=== PATIENT | female | born 1940 | race Caucasian/White ===

== ENCOUNTER 2016-08-02 17:57 | Observation (INO) | payer MEDICARE, MEDICAID ==
[~2016-08-02] VITALS: Ht 157.5 cm; Wt 60.0 kg
[~2016-08-02 17:57] MED LIST: ASPI-676 PO; DILT120C45 PO; DOCU100C PO; FURO-110 PO; METF500T3 PO; OMEP20CA9 PO; SMV40T PO; VALS160T20 PO; ZOLP10TA PO
[2016-08-02 18:27] VITALS: Ht 157.5 cm; Wt 60.0 kg
[2016-08-02] MEDS ORDERED: morphine 2 MG INJ IV STA (21:38)
[2016-08-02] MEDS ORDERED: ONDANSETRON 4 MG INJ IV STA (21:38)
[2016-08-02] MEDS ORDERED: SOD CHLORIDE 0.9% 500 ML IV STA (21:38)
[2016-08-02 21:48] LABS: ADD SCAN DIFF NO
[2016-08-02 21:51] LABS: BASOPHIL # 0.1 10^3/ul (0.0-0.1); BASOPHILS % 0.7 % (0.0-2.0); EOSINOPHILS # 0.3 10^3/ul (0.0-0.5); EOSINOPHILS % 3.2 % (0.0-7.0); HEMATOCRIT 45.9 % (37.0-47.0); HEMOGLOBIN 15.1 g/dl (12.0-16.0); LYMPHOCYTES # 1.5 10^3/ul (0.8-2.9); LYMPHOCYTES % 15.6 % (15.0-51.0); MEAN CORPUSCULAR HEMOGLOBIN 30.1 pg (29.0-33.0); MEAN CORPUSCULAR HGB CONC 32.9 g/dl (32.0-37.0); MEAN CORPUSCULAR VOLUME 91.4 fl (82.0-101.0); MEAN PLATELET VOLUME 10.3 fl (7.4-10.4); MONOCYTE # 0.7 10^3/ul (0.3-0.9); MONOCYTES % 6.9 % (0.0-11.0); NEUTROPHIL # 6.9 10^3/ul (1.6-7.5); NEUTROPHILS % 73.4 % (39.0-77.0); PLATELET COUNT 292 10^3/UL (140-415); RED BLOOD COUNT 5.02 10^6/ul (4.20-5.40); RED CELL DISTRIBUTION WIDTH 14.6 % (11.5-14.5); WHITE BLOOD COUNT 9.4 10^3/ul (4.8-10.8)
[2016-08-02] MEDS ORDERED: LOSA100T7 PO (21:55)
[2016-08-02] MEDS ORDERED: HYDR12.58 PO (21:56)
[2016-08-02] MEDS ORDERED: DONE10TA7 PO (21:56)
[2016-08-02] MEDS ORDERED: GABA300C16 PO (21:57)
[2016-08-02] MEDS ORDERED: LINA145C PO (21:58)
[2016-08-02] MEDS ORDERED: TRAM-40 PO (21:58)
[2016-08-02 22:01] LABS: INR 1.05; PROTIME 13.7 Sec (12.2-14.2); PT RATIO 1.1
[2016-08-02 22:02] LABS: ALBUMIN 3.9 g/dl (3.3-4.9); CHLORIDE 94 mmol/L (97-110); PARTIAL THROMBOPLASTIN TIME 31.5 Sec (25.0-35.0); POTASSIUM 3.4 mmol/L (3.5-5.1); SODIUM 139 mmol/L (135-144)
[2016-08-02 22:04] LABS: BILIRUBIN,INDIRECT 0.2 mg/dl (0-1.1); BILIRUBIN,TOTAL 0.2 mg/dl (0.2-1.3); CREATININE 0.59 mg/dl (0.44-1.00)
[2016-08-02 22:05] LABS: ALANINE AMINOTRANSFERASE 23 IU/L (13-69); ALKALINE PHOSPHATASE 94 IU/L (42-121); ANION GAP 15 (8-16); ASPARTATE AMINO TRANSFERASE 24 IU/L (15-46); BLOOD UREA NITROGEN 9 mg/dl (7-20); CALCIUM 9.4 mg/dl (8.4-10.2); CARBON DIOXIDE 33 mmol/L (21-31); GLUCOSE 144 mg/dl (70-220); TOTAL PROTEIN 7.8 g/dl (6.1-8.1)
[2016-08-02 22:23] LABS: TROPONIN-I < 0.012 ng/ml (0.00-0.12)
--- NOTE | 2016-08-03 00:23 | RADRPT ---
PROCEDURE: CT abdomen and pelvis without contrast. CLINICAL INDICATION: Diffuse abdominal pain and vomiting TECHNIQUE: CT scan of the abdomen and pelvis without contrast was performed. Sagittal and coronal reformatted images were obtained from the axial source images. CTDI = 13.41 mGy; DLP = 697.91 mGy-c m COMPARISON: CT 03/24/2013 FINDINGS: Visualized lower thorax: Esophageal stent in the distal esophagus is noted, some gas is present wit hin the lumen. Bilateral lower lobe peribronchial thickening unable to exclude bronchitis with biba silar subsegmental atelectasis and / or scarring. The visualized heart is mildly enlarged. There i s no evidence for pleural effusion. Liver, gallbladder, pancreas and spleen: The liver is normal and size, contour and attenuation. Th ere is no evidence for a liver mass or ductal dilatation. The gallbladder is unremarkable. No comm on bile duct abnormality is demonstrated. Simple 9 mm cyst in the upper pain. Body is again noted with an additional 9 mm cyst in the pancreatic head, the pancreatic duct within limits of normal. T he spleen is normal in size. The peripherally calcified splenic artery aneurysm seen previously has not changed significantly in size estimated at 3 cm in greatest dimension (series 2 image 33) Adrenal glands and genitourinary system: Right adrenal gland nodule containing punctate foci of fat is unchanged estimated 2.5 cm (series 3 image 34) the finding most likely a myelolipoma. The left a drenal gland is unremarkable. Renal size and contour are normal bilaterally with trace right-sided hydronephrosis without calculus. The left kidney is unremarkable. The left ureter is unremarkable the right ureter is mildly dilated without calculus. No urinary bladder abnormality is demonstrated . A calcification within the atrophic uterine fundus measures approximately 1 cm and is consistent with an old leiomyoma. There is no evidence of ovarian or adnexal mass. No free fluid is seen in t he cul-de-sac. Gastrointestinal system: The stomach is normal in caliber with no abnormality of significance. The small bowel is normal in caliber with no ileus, obstruction or wall thickening. There is no evidenc e of appendicitis. The colon shows no evidence for wall thickening or acute abnormality. There is no evidence for colitis or diverticulitis. Artifact from a metallic type density in the fecal materi al of the rectum is present and of uncertain significance. There is no evidence of proctitis Peritoneum, retroperitoneum, lymph nodes and vessels: The abdominal aorta is normal in caliber. The re is mild to moderate aortic and iliac system atherosclerotic calcification. The inferior vena cav a is unremarkable. There is no evidence for adenopathy or mass. There is no ascites. No pneumoperi toneum is present. A fat containing infraumbilical ventral hernia of approximately 4 cm is unchange d. Osseous structures and musculoskeletal findings: Chronic appearing superior L4 compression deformit y is again noted with diffuse demineralization and thoracolumbar spondylosis not significantly ospina ed. Degenerative osteoarthrosis of the left greater than hip joint is again noted. Incidental bila teral calcified injection gluteal granulomata are again seen. RPTAT:HJJR IMPRESSION: 1. Mild right hydroureteronephrosis without evidence of radiopaque urinary tract calculus suggests the possibility of recent stone passage in the proper clinical setting. 2. No evidence of bowel obstruction, ileus, colitis or diverticulitis. 3. Distal esophageal stent is again noted with gas in the lumen implying stent patency. 4. Stable peripherally calcified approximately 3 cm splenic artery aneurysm. 5. 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 6. Suspected calcified uterine leiomyoma again noted. 7. Linear metallic type density in the rectum possibly a previous ingested foreign body and of doub tful clinical significance. 8. Stable fat-containing infraumbilical hernia. 9. Again noted is a chronic superior L4 osteoporotic compression deformity. Physician Lenora Date Time Electronically viewed and signed by Physician Lenora on 08/03/2016 00:22 JR/
[2016-08-03 02:08] LABS: ADD UMIC NO; URINE BILIRUBIN (Dip) NEGATIVE (NEGATIVE); URINE BLOOD (Dip) NEGATIVE (NEGATIVE); URINE COLOR LT. YELLOW (YELLOW); URINE GLUCOSE (Dip) NEGATIVE (NEGATIVE); URINE KETONES (Dip) NEGATIVE (NEGATIVE); URINE LEUKOCYTE ESTERASE (Dip) NEGATIVE (NEGATIVE); URINE NITRITE (Dip) NEGATIVE (NEGATIVE); URINE TOTAL PROTEIN (Dip) NEGATIVE (NEGATIVE); URINE UROBILINOGEN (Dip) 0.2 E.U./dL (0.1-1.0)
[2016-08-03] MEDS ORDERED: MECLIZINE 12.5 MG TAB PO ONE (04:00)
[2016-08-03] MEDS ORDERED: ONDANSETRON 4 MG INJ IV STA (04:53)
[2016-08-03] MEDS ORDERED: METOCLOPRAMIDE 10 MG INJ IV ONE (05:00)
[2016-08-03] MEDS ORDERED: LABETALOL HCL 20MG INJ IV ONE (05:00)
--- NOTE | 2016-08-03 05:56 | RADRPT ---
PROCEDURE: CT Brain without. CLINICAL INDICATION: Vertigo TECHNIQUE: A CT of the brain was performed utilizing axial sections from the skull base through th e vertex without contrast. The scan was reviewed in soft tissue brain and high frequency resolution bone algorithm windows. Images were reviewed on a high-resolution PACS workstation. The exam CTDI = 38.54 mGy, and the DLP = 713.51 mGy-cm. COMPARISON: Head CT dated 03/24/2013 FINDINGS: There is mild prominence of the lateral ventricles and cerebral sulci, consistent with diffuse cereb ral atrophy. There is no intracranial hemorrhage, midline shift, or mass effect. No abnormal extra- axial fluid collections are identified. There is hypoattenuation of the periventricular white matte r. The graff-white differentiation is well preserved. The basal cisterns are patent. The posterior fossa is unremarkable. Vascular calcifications are noted within the intracranial portions of the ve rtebral and internal carotid arteries. The visualized portions of the orbits are unremarkable. The paranasal sinuses and mastoid air cells are clear. No calvarial fracture or abnormality are identified. The soft tissues are unremarkable . IMPRESSION: 1. No acute intracranial abnormality. No significant interval change. 2. Age related senescent changes with mild diffuse cerebral atrophy. 3. Extensive patchy periventricular hypoattenuation, nonspecific finding, most commonly associated with microvascular ischemic changes. 4. Arterial atherosclerosis. RPTAT: HH .Kathe Nunes MD, Date Time Electronically viewed and signed by .Kathe Nunes MD, on 08/03/2016 05:56 .G/
[2016-08-03] MEDS ORDERED: ONDANSETRON 4 MG INJ IV ONE (06:05)
[2016-08-03] MEDS ORDERED: ONDANSETRON 4 MG INJ IV PRN ×2 (06:30→08:00)
[2016-08-03] MEDS ORDERED: ACETAMINOPHEN 325 MG TAB PO PRN ×2 (06:30→08:00)
--- NOTE | 2016-08-03 06:31 | ERD ---
ER Documentation Chief Complaint Date/Time DATE: 08/03/16 TIME: 06:24 Chief Complaint diffuse abd pain x 2 days w/ vomiting HPI 76-year-old female presents with diffuse crampy abdominal pain, dizziness described as the room spinning, multiple episodes of vomiting with persistent nausea after 3 days. He has also had generalized weakness. She denies any fevers or chills. Denies any chest pain. Does not have a headache. All denies any neuro deficits. ROS All systems reviewed and are negative except as per history of present illness. Medications Home Meds Reported Medications Linaclotide (LINZESS) 145 Mcg Capsule, 145 MCG PO DAILY, #30 CAP 08/02/16 Tramadol Hcl* (Ultram*) 50 Mg Tablet, 50 MG PO TID Y for PAIN, TAB 08/02/16 Gabapentin* (Gabapentin*) 300 Mg Capsule, 300 MG PO DAILY, #30 CAP 08/02/16 Donepezil* (Donepezil*) 10 Mg Tablet, 10 MG PO DAILY, #30 TAB 08/02/16 Hydrochlorothiazide* (Hydrochlorothiazide*) 12.5 Mg Tablet, 12.5 MG PO DAILY, # 30 TAB 08/02/16 Losartan Potassium* (Losartan Potassium*) 100 Mg Tablet, 100 MG PO DAILY, TAB 08/02/16 Metformin* (Glucophage* XR) 500 Mg Tab.sr.24h, 500 MG PO DAILY 08/02/12 Simvastatin (Simvastatin) 40 Mg Tablet, 40 MG PO HS 08/02/12 Omeprazole* (Prilosec*) 20 Mg Capsule.dr, 20 MG PO DAILY 08/02/12 Diltiazem Hcl (Diltiazem Er) 120 Mg Capsule.cr, 120 MG PO DAILY 08/02/12 Discontinued Reported Medications Zolpidem Tartrate* (Ambien*) 10 Mg Tablet, 10 MG PO DAILY 08/02/12 Docusate Sodium (Doc-Q-Lace) 100 Mg Capsule, 100 MG PO TID 08/02/12 Furosemide* (Lasix*) 20 Mg Tablet, 20 MG PO DAILY 08/02/12 Aspirin (Linda Child) 81 Mg Chew, 81 MG PO DAILY 08/02/12 Valsartan* (Diovan*) 160 Mg Tablet, 160 MG PO BID 08/02/12 Allergies Allergies: Coded Allergies: No Known Allergy (Verified , 08/02/16) PMhx/Soc History of Surgery: Yes (RIGHT MASTECTOMY) Anesthesia Reaction: No Hx Neurological Disorder: No Hx Respiratory Disorders: Yes (ASTHMA, BRONCHITIS, PNA) Hx Cardiac Disorders: Yes (HTN) Hx Psychiatric Problems: No Hx Miscellaneous Medical Probl: Yes (DM, cholesterol) Hx Alcohol Use: No Hx Substance Use: No Hx Tobacco Use: No Smoking Status: Never smoker Physical Exam Vitals Vital Signs Date Time Temp Pulse Resp B/P Pulse Ox O2 Delivery O2 Flow Rate FiO2 08/03/16 05:39 98.0 58 20 174/98 96 Nasal Cannula 2.0 08/03/16 03:00 98.2 54 20 158/94 96 Nasal Cannula 2.0 08/03/16 01:00 98.2 58 16 165/97 97 Nasal Cannula 2.0 08/02/16 22:45 74 16 155/102 97 Nasal Cannula 2.0 08/02/16 18:27 98.2 96 20 169/119 97 Physical Exam Const: [] No distress, patient appears uncomfortable, holding emesis basin, vomited on exam Head: Atraumatic Eyes: Normal Conjunctiva, EOMI, PERRLA ENT: Normal External Ears, Nose and Mouth. Neck: Full range of motion..~ No meningismus. Resp: Clear to auscultation bilaterally Cardio: Regular rate and rhythm, no murmurs Abd: Soft, mild diffuse tenderness without guarding or rebound, non distended. Normal bowel sounds Skin: No petechiae or rashes Back: No midline or flank tenderness Ext: No cyanosis, or edema Neur: Awake and alert and oriented 3, cranial nerves II through XII intact, no cerebellar deficits, gait not tested, vertigo made worse with positional changes Psych: Normal Mood and Affect Result Diagram: 08/02/16213208/02/162132 Results 24 hrs Laboratory Tests Test 08/02/16 21:33 08/02/16 21:45 08/03/16 01:30 Activated Partial Thromboplast Time 31.5Sec Alanine Aminotransferase (ALT/SGPT) 23IU/L Albumin 3.9g/dl Albumin/Globulin Ratio 1.00 Alkaline Phosphatase 94IU/L Anion Gap 15 Aspartate Amino Transf (AST/SGOT) 24IU/L Basophils # 0.110^3/ul Basophils % 0.7% Blood Urea Nitrogen 9mg/dl Calcium Level 9.4mg/dl Carbon Dioxide Level 33mmol/L Chloride Level 94mmol/L Creatinine 0.59mg/dl Direct Bilirubin 0.00mg/dl Eosinophils # 0.310^3/ul Eosinophils % 3.2% Globulin 3.90g/dl Glucose Level 144mg/dl Hematocrit 45.9% Hemoglobin 15.1g/dl INR International Normalized Ratio 1.05 Indirect Bilirubin 0.2mg/dl Lipase 42U/L Lymphocytes # 1.510^3/ul Lymphocytes % 15.6% Mean Corpuscular Hemoglobin 30.1pg Mean Corpuscular Hemoglobin Concent 32.9g/dl Mean Corpuscular Volume 91.4fl Mean Platelet Volume 10.3fl Monocytes # 0.710^3/ul Monocytes % 6.9% Neutrophils # 6.910^3/ul Neutrophils % 73.4% Nucleated Red Blood Cells # 0.010^3/ul Nucleated Red Blood Cells % 0.0/100WBC Platelet Count 90715^3/UL Potassium Level 3.4mmol/L Prothrombin Time 13.7Sec Prothrombin Time Ratio 1.1 Red Blood Count 5.0210^6/ul Red Cell Distribution Width 14.6% Sodium Level 139mmol/L Total Bilirubin 0.2mg/dl Total Protein 7.8g/dl Troponin I < 0.012ng/ml White Blood Count 9.410^3/ul Lactic Acid Level 2.0mmol/L Urine Bilirubin NEGATIVE Urine Clarity CLEAR Urine Color LT. YELLOW Urine Glucose NEGATIVE% Urine Hemoglobin NEGATIVE Urine Ketones NEGATIVE Urine Leukocyte Esterase NEGATIVE Urine Nitrite NEGATIVE Urine Specific [place] 1.010 Urine Total Protein NEGATIVE Urine Urobilinogen 0.2 E.U./dL Urine pH 8.0 Current Medications Medications (Trade) Dose Ordered Sig/Rachel Route PRN Reason Start Time Stop Time Status Last Admin Dose Admin Sodium Chloride (NS) 500 ml @ 500 mls/hr Q1H STAT IV 08/02/16 21:38 08/02/16 22:37 DC 08/02/16 21:56 Morphine Sulfate (morphine) 2 mg ONCE STAT IV 08/02/16 21:38 08/02/16 21:40 DC 08/02/16 21:56 Ondansetron HCl (Zofran Inj) 4 mg ONCE STAT IV 08/02/16 21:38 08/02/16 21:40 DC 08/02/16 21:56 Meclizine HCl (Antivert) 25 mg ONCE ONCE PO 08/03/16 04:00 08/03/16 04:01 DC 08/03/16 03:48 Labetalol HCl (Labetalol) 10 mg ONCE ONCE IV 08/03/16 05:00 08/03/16 05:01 DC 08/03/16 05:10 Metoclopramide HCl (Reglan) 10 mg ONCE ONCE IV 08/03/16 05:00 08/03/16 05:01 DC 08/03/16 05:10 Ondansetron HCl (Zofran Inj) 4 mg ONCE STAT IV 08/03/16 04:53 08/03/16 04:55 DC 08/03/16 05:10 Ondansetron HCl (Zofran Inj) 4 mg ONCE ONCE IV 08/03/16 06:05 08/03/16 06:06 DC Ondansetron HCl (Zofran Inj) 4 mg BRIDGE ORDER PRN IV NAUSEA AND/OR VOMITING 08/03/16 06:30 08/04/16 06:29 Acetaminophen (Tylenol Tab) 650 mg ER BRIDGE PRN PO MILD PAIN/FEVER 08/03/16 06:30 08/04/16 06:29 Procedures/MDM Elderly female with intractable nausea and vertigo. Given multiple doses of nausea medication in the ER. No relief from vertigo with Antivert. She stated that she actually felt worse after the Antivert. Benign abdominal exam and CAT scan showing no acute abnormalities it would explain any of her symptoms. Patient also states that she is constipated although CT does not show evidence of any severe constipation. No signs of sepsis or any overwhelming infection with normal white count, patient does have contraction alkalosis suggestive of dehydration which is consistent with her nausea and vomiting for 2 days. Lactic acid of 2. Patient was hydrated with normal saline. She also had no signs of cardiac abnormalities. Patient did have inverted T waves on EKG with a negative troponin and no chest pain or. Head CT did not show any signs of any stroke or brain hemorrhage. No trauma was reported. Patient is going to be admitted for further evaluation and monitoring, and IV hydration. Dr. toney is admitting the patient. EKG interpretation: Normal sinus rhythm, left axis deviation, right bundle branch block, ST inversions in all precordial leads, suspicious for some ischemia. A monitor interpretation: Normal sinus rhythm without arrhythmia Chest x-ray interpretation: No acute process, no witnessed him, no infiltrates, no pneumothorax, no fractures CT head interpretation: I see no acute process, no hemorrhage no mass effect no midline shift, no skull fractures Departure Diagnosis: Primary Impression: Dehydration Additional Impressions: Intractable vomiting Vertigo Abdominal pain Condition: Stable DENZEL JENKINS DO Aug 03, 2016 06:31
[2016-08-03 07:20] VITALS: TEMP 98
[2016-08-03] MEDS ORDERED: NACL 0.9% 3 ML SYG IV SCH (08:00)
[2016-08-03] MEDS ORDERED: traMADol 50 MG TAB PO PRN (08:00)
[2016-08-03] MEDS ORDERED: NON-FORMULARY/PATIENT OWN MED (Linaclotide (Linzess) 145 MCG) PO SCH (09:00)
[2016-08-03] MEDS ORDERED: GABAPENTIN 300 MG CAP PO SCH (09:00)
[2016-08-03] MEDS ORDERED: LOSARTAN 50 MG TAB PO SCH (09:00)
[2016-08-03] MEDS ORDERED: DILTIAZEM (CD) 120 MG CAP PO SCH (09:00)
[2016-08-03] MEDS ORDERED: DONEPEZIL 10 MG TAB PO SCH (09:00)
[2016-08-03] MEDS ORDERED: HYDROCHLOROTHIAZIDE 12.5 MG CAP PO SCH (09:00)
[2016-08-03] MEDS ORDERED: metFORMIN (XR) 500 MG TAB PO SCH (09:00)
[2016-08-03] MEDS ORDERED: PANTOPRAZOLE (EC) 40 MG TAB PO SCH (09:00)
[2016-08-03 10:00] VITALS: BP 175/95; PULSE 59; RESP 16
[2016-08-03] MEDS ORDERED: hydrALAzine 20 MG INJ IV PRN (12:30)
[2016-08-03 12:58] VITALS: BP 180/85; PULSE 58
[2016-08-03 13:37] VITALS: BP 125/70; PULSE 80
--- NOTE | 2016-08-03 16:29 | PDOCDIS ---
Discharge Instructions CONDITION Patient Condition: Good HOME CARE INSTRUCTIONS: Special Diet: Diabetic ACTIVITY: Activity Restrictions: No Restrictions FOLLOW UP/APPOINTMENTS Appointments F/U WITH YOUR PCP IN 1-2 WEEKS BHARATI SNOW Aug 03, 2016 16:29
[2016-08-03] MEDS ORDERED: ONDA-43 PO (16:30)
[2016-08-03] MEDS ORDERED: POTASSIUM CHLORIDE (SR) 20 MEQ TAB PO STA (16:33)
--- NOTE | 2016-08-03 17:04 | DS ---
DATE OF ADMISSION: 08/03/2016 DATE OF DISCHARGE: 08/03/2016 DISCHARGE DIAGNOSES: 1. Gastroenteritis, likely viral, resolved, discharge with Zofran. 2. History of diabetes. Continue home medications. 3. Hypertension, elevated during this hospitalization secondary to abdominal discomfort, but now st able. 4. Gastroesophageal reflux disease. Continue home medications. 5. Mild dementia. Continue Aricept. HOSPITAL COURSE: The patient is a 76-year-old female with a history of elc-pwxcwjy-[id number] diabet es, hypertension, dementia. The patient presents with abdominal pain with nausea, vomiting for the past 2 days. During that time, BP was also elevated. She had a CT abdomen that showed no acute fin dings. There were some chronic findings, but nothing of acute significance. The patient received a brain CT that showed no acute findings as well ____ age-related changes. The patient's labs were w ithin normal limits except for potassium that was slightly low and that was replaced. Patient's lip ase was within normal limits. The patient's UA was normal. Coagulation was normal. On day of disc harge, the patient's vitals, labs, and physical exam were stable. She had no acute complaints and q uestions were answered. Her nausea, vomiting, and abdominal pain has been resolved. CONDITION ON DISCHARGE: Stable. DISPOSITION: To home. MEDICATIONS: She should continue her usual home medications. The patient was given a new prescript ion for Zofran 4 mg p.o. q.6h. p.r.n. for nausea, vomiting. FOLLOWUP: The patient is to follow up with PCP in 1 to 2 weeks. Greater than 30 minutes was spent coordinating discharge of patient. Dictated By: BHARATI SNOW MD BS/NTS Conf#: [id number] DID#: [id number]
[2016-08-03] MEDS ORDERED: ATORVASTATIN 20 MG TAB PO SCH (21:00)
--- NOTE | 2016-08-04 07:45 | HP ---
DATE OF ADMISSION: 08/03/2016 TIME SEEN: 6:30 AM CHIEF COMPLAINT: Abdominal pain and vomiting and right ____. HISTORY OF PRESENT ILLNESS: The patient is a 76-year-old female with a history of breast cancer, hy pertension, dyslipidemia, ____pneumonia and diabetes, who presented to the emergency department with the above stated chief complaint. Abdominal pains are mostly diffuse, but more pronounced in the e pigastric and right side of her abdomen. She has also been having multiple episodes of nonbloody, n onbilious vomiting. Also, she reported vertigo-like symptoms usually associated with vomiting. She denied any chest pain, shortness of breath, fever or chills. When the patient presented to the ER, CT of the head was done and it showed volume loss as well as e xtensive patchy periventricular hypoattenuation, likely a result of microangiopathic ischemic change . Otherwise, there were no acute findings. CT of abdomen and pelvis was done which showed no acute findings, including no bowel obstruction. The patient has a distal esophageal stent which was note d on the CAT scan. The patient was given meclizine in the ER, along with anti-emetics ____. REVIEW OF SYSTEMS: ____ ____ PHYSICAL EXAMINATION: GENERAL: The patient lying in bed. She was sleepy, but arousable. She ____ appears weak. HEENT: No obvious head deformity. Anicteric sclerae. Extraocular muscles intact. CARDIOVASCULAR: Regular rate and rhythm. No extra sounds. LUNGS: Clear. ABDOMEN: Soft, tenderness diffusely with no guarding. No rigidity. There are positive bowel sound s. EXTREMITIES: ____ LABORATORIES: Potassium 3.4. ____ IMAGING: CT of the head and CT abdomen and pelvis with results mentioned in the HPI. IMPRESSION: 1. Abdominal pain with nausea and vomiting. 2. History of hypertension. 3. Vertigo-like symptoms. 4. History of dyslipidemia. 5. History of diabetes. 6. History of asthma. 7. History of breast cancer. PLAN: The patient with symptoms of abdominal pain and nausea and vomiting could be a result of some type of food poisoning. CT of the head did not show any bowel obstruction and her distal esophage al stent was noted to be in the right place ____. We will provide pain medication and antiemetics a s needed. Her vertigo-like symptom is most likely the result of her intractable vomiting. ____IV fluids. We will monitor her kidney function. We will replace electrolytes as needed. Will continue her home medications with adjustment as needed. If her vertigo-like symptoms do not improve after hydration and controlling her clonidine, then mecl izine will be ____her, but it seems like it is premature to treat her with meclizine at this point. Further workup and management per clinical course. Dictated By: LISA ZUNIGA/JULIO CÉSAR Conf#: [id number] DID#: [id number]
== END 2016-08-03 18:30 | disposition home or self-care (01) ==
LOC: E/R 17:57 → MS1 08-03 06:13
PROVIDERS: ADMIT Internal Medicine; ATTEND Internal Medicine
DX: A08.4 Viral intestinal infection, unspecified (principal); E11.9 Type 2 diabetes mellitus without complications; I10 Essential (primary) hypertension; K21.9 Gastro-esophageal reflux disease without esophagitis; F03.90 Unspecified dementia, unspecified severity, without behavioral disturbance, psychotic disturbance, mood disturbance, and anxiety; E78.5 Hyperlipidemia, unspecified; J45.909 Unspecified asthma, uncomplicated; Z85.3 Personal history of malignant neoplasm of breast
CPT/HCPCS: 36415; 70450; 74176; 80053; 81003; 83605; 83690; 84484; 85025; 85610; 85730; 93005; 96374; 96375; 96376; 99285; G0378; J0360; J2270; J2405; J2765; J7040

== ENCOUNTER 2016-08-25 09:14 | Emergency (ER) | payer MEDICARE, MEDICAID ==
[~2016-08-25] VITALS: Ht 154.9 cm; Wt 55.0 kg
[~2016-08-25 09:14] MED LIST changes: -ASPI-676 PO; -DOCU100C PO; +DONE10TA7 PO; -FURO-110 PO; +GABA300C16 PO; +HYDR12.58 PO; +LINA145C PO; +LOSA100T7 PO; +MIDAZOLAM 1 MG/ML 2 ML INJ ONE; +ONDA-43 PO; +TRAM-40 PO; -VALS160T20 PO; -ZOLP10TA PO
[2016-08-25 09:15] VITALS: Ht 154.9 cm; Wt 55.0 kg
[2016-08-25] MEDS ORDERED: FENTAnyl 50 MCG/ML VIAL IV ONE (09:30)
[2016-08-25] MEDS ORDERED: NORepinephrine 8MG/250 ML (PMX 250 ML ONE (09:34)
[2016-08-25] MEDS ORDERED: SODIUM CHLORIDE 0.9% 1L BAG IV* STA (09:40)
[2016-08-25] MEDS ORDERED: CEFEPIME 2GM/50 ML (PMX) 50 ML IVPB STA (09:40)
[2016-08-25] MEDS ORDERED: SOD CHLORIDE 0.9% 1,000 ML IV STA (09:40)
[2016-08-25] MEDS ORDERED: NORepinephrine 8MG/250 ML (PMX 250 ML IV STA (09:40)
[2016-08-25] MEDS ORDERED: MIDAZOLAM (DRIP) 50 mg/50 mL 50 ML IV STA (09:42)
[2016-08-25] MEDS ORDERED: FENTAnyl (DRIP) 1000 mcg/100mL 100 ML IV SCH (10:00)
[2016-08-25] MEDS ORDERED: VANCOMYCIN 1 GM (PMX) 250 ML IVPB ONE (10:00)
[2016-08-25] MEDS ORDERED: VASOPRESSIN 60 UNIT in SOD CHLORIDE 0.9% 57 ML IV STA (10:16)
[2016-08-25] MEDS ORDERED: DOPamine-D5W 1.6 MG/ML 250 ML ONE (10:19)
[2016-08-25] MEDS ORDERED: DOPamine-D5W 1.6 MG/ML 250 ML IV SCH (10:30)
[2016-08-25] MEDS ORDERED: IODIXANOL LOCM 100 ML BTL ONE (10:34)
[2016-08-25] MEDS ORDERED: IODIXANOL LOCM 50 ML BTL ONE (10:34)
[2016-08-25] MEDS ORDERED: SOD CHLORIDE 0.9% 100 ML ONE (10:34)
[2016-08-25 10:36] LABS: AADO2 Arterial 172.4 mmHg (7.0-24.0); Arterial Base Excess -15.3 mmol/L (-3.0-3); Arterial COHb 0.3 % (0.0-3.0); Arterial Fraction of Oxyhgb 97.9 % (93.0-99.0); Arterial HCO3 11.3 mmol/L (22.0-26.0); Arterial Total Hemglobin 5.4 g/dl (12.0-18.0); Blood Gas Low PEEP Setting 0 cmH2O; MODE VENT - AC
--- NOTE | 2016-08-25 10:37 | ERA ---
ER Documentation Chief Complaint Date/Time DATE: 08/25/16 TIME: 10:29 Chief Complaint ALOC brought by EMS HPI 76-year-old female who presents via EMS intubated. History is somewhat limited. An ingredient specialist was used with the patient's daughter. It appears the patient did not feel well yesterday evening. Today the patient was describing shortness of breath and lung collapse. Upon EMS arrival the patient had agonal respirations and hypotension. The patient was intubated in the field. Upon arrival the patient was intubated, hypotensive and further aggressive resuscitation efforts were provided as documented below. Remainder of HPI is limited given critical nature. The patient's daughter does not describe any recent fever, chest pain, pleuritic pain, travel, no history of DVT. ROS All systems reviewed and are negative except as per history of present illness. Medications Home Meds Reported Medications Linaclotide (LINZESS) 145 Mcg Capsule, 145 MCG PO DAILY, #30 CAP 08/02/16 Tramadol Hcl* (Ultram*) 50 Mg Tablet, 50 MG PO TID Y for PAIN, TAB 08/02/16 Gabapentin* (Gabapentin*) 300 Mg Capsule, 300 MG PO DAILY, #30 CAP 08/02/16 Donepezil* (Donepezil*) 10 Mg Tablet, 10 MG PO DAILY, #30 TAB 08/02/16 Hydrochlorothiazide* (Hydrochlorothiazide*) 12.5 Mg Tablet, 12.5 MG PO DAILY, # 30 TAB 08/02/16 Losartan Potassium* (Losartan Potassium*) 100 Mg Tablet, 100 MG PO DAILY, TAB 08/02/16 Metformin* (Glucophage* XR) 500 Mg Tab.sr.24h, 500 MG PO DAILY 08/02/12 Simvastatin (Simvastatin) 40 Mg Tablet, 40 MG PO HS 08/02/12 Omeprazole* (Prilosec*) 20 Mg Capsule.dr, 20 MG PO DAILY 08/02/12 Diltiazem Hcl (Diltiazem Er) 120 Mg Capsule.cr, 120 MG PO DAILY 08/02/12 Discontinued Scripts Ondansetron Hcl* (Zofran*) 4 Mg Tab, 4 MG PO Q6H Y for NAUSEA AND OR VOMITING, # 20 TAB 1 Refill Prov:BHARATI SNOW 08/03/16 Allergies Allergies: Coded Allergies: No Known Allergy (Verified , 08/25/16) PMhx/Soc History of Surgery: Yes (right mastectomy) Anesthesia Reaction: No Hx Neurological Disorder: No Hx Respiratory Disorders: Yes (asthma ) Hx Cardiac Disorders: Yes (HTN) Hx Psychiatric Problems: Yes (anxiety) Hx Miscellaneous Medical Probl: No Hx Alcohol Use: No Hx Substance Use: No Hx Tobacco Use: Yes Smoking Status: Unknown if ever smoked FmHx Unknown Physical Exam Vitals Vital Signs Date Time Temp Pulse Resp B/P Pulse Ox O2 Delivery O2 Flow Rate FiO2 08/25/16 11:26 104 26 100 100 08/25/16 09:26 99 20 100 100 08/25/16 09:15 98.4 108 16 77/45 100 Physical Exam General: The patient is intubated. Slight movement of all extremities Head: Normocephalic, atraumatic. Eyes: Pupils equally reactive, EOM intact ENT: Moist mucous membranes, endotracheal tube appears to be in good position Neck: Supple, no lymphadenopathy Respiratory: Breath sounds bilaterally with bagging Cardiovascular: RRR, no murmurs, rubs, or gallops, thready pulses distally Abdominal: Soft, non-tender, non-distended, no peritoneal signs, no pulsatile mass : Deferred MSK: No edema, no unilateral swelling, limited movement of all extremities Neurologic: Appears to open eyes spontaneously but no movement following commands Skin: No rash, no evidence of trauma Psych: Normal mood Result Diagram: 08/25/16 0930 Results 24 hrs Laboratory Tests Test 08/25/16 09:30 08/25/16 09:36 08/25/16 11:25 Sodium Level 147mmol/L Potassium Level 4.2mmol/L Chloride Level 120mmol/L Carbon Dioxide Level 14mmol/L Anion Gap 17 Blood Urea Nitrogen 9mg/dl Creatinine 0.67mg/dl Glucose Level 280mg/dl Lactic Acid Level 7.7mmol/L Calcium Level 6.7mg/dl Total Bilirubin 0.0mg/dl Direct Bilirubin 0.00mg/dl Indirect Bilirubin 0.0mg/dl Aspartate Amino Transf (AST/SGOT) 11IU/L Alanine Aminotransferase (ALT/SGPT) 19IU/L Alkaline Phosphatase 27IU/L Troponin I 0.014ng/ml Total Protein 3.1g/dl Albumin 1.4g/dl Globulin 1.70g/dl Albumin/Globulin Ratio 0.82 Lipase 87U/L Blood Gas Specimen Source Blood arterial Arterial Blood Date Drawn 08/25/2016 10:24:54 AM Arterial Blood pH (Temp corrected) 7.204 Arterial Blood pCO2 (Temp correct) 29.3mmhg Arterial Blood pO2 (Temp corrected) 511.3mmHG Arterial Blood HCO3 11.3mmol/L Arterial Blood Base Excess -15.3mmol/L Arterial Blood Oxygen Saturation 99.2mmHG Robert Test N/A Arterial Blood Gas Puncture Site Right Brachial Arterial Blood Carboxyhemoglobin 0.3% Arterial Blood Methemoglobin 1.0% Blood Gas A-a O2 Differential 172.4mmHg Oxyhemoglobin Percent 97.9% Total Hemoglobin 5.4g/dl Blood Gas Temperature 37.0C Blood Gas Respiration Rate 16.0 Blood Gas Actual Respiration Rate 21 Blood Gas Modality VENT - AC FiO2 100.0% Blood Gas Tidal Volume 500.0mL Blood Gas Low PEEP Setting 0cmH2O Blood Gas Critical Value Read Back DR. DOSS Blood Gas Notified Whom M.William. Blood Gas Notified Time 08/25/2016 10:35:43 AM Prothrombin Time Pending Prothrombin Time Ratio 2.9 INR International Normalized Ratio 3.63 Activated Partial Thromboplast Time 53.6Sec Current Medications Medications (Trade) Dose Ordered Sig/Rachel Route PRN Reason Start Time Stop Time Status Last Admin Dose Admin Fentanyl 100 mcg 100 mcg ONCE ONCE IV 08/25/16 09:30 08/25/16 09:31 DC 08/25/16 09:59 Norepinephrine (Levophed) 250 ml @ ud STK-MED ONCE .ROUTE 08/25/16 09:34 08/25/16 09:35 DC Sodium Chloride 1710 ml 1,710 ml BOLUS OVER 2 HOURS STAT IV* 08/25/16 09:40 08/25/16 09:43 DC 08/25/16 10:35 Norepinephrine 250 ml @ 7.5 mls/hr ONCE STAT IV 08/25/16 09:40 08/26/16 18:59 08/25/16 10:02 Cefepime HCl 50 ml @ 100 mls/hr ONCE STAT IVPB 08/25/16 09:40 08/25/16 10:09 DC Vancomycin HCl 250 ml @ 125 mls/hr ONCE ONCE IVPB 08/25/16 10:00 08/25/16 11:59 Sodium Chloride 1,000 ml @ 1,000 mls/hr Q1H STAT IV 08/25/16 09:40 08/25/16 10:39 DC 08/25/16 10:34 Fentanyl 100 ml @ 2.5 mls/hr TITRATE IV 08/25/16 10:00 Midazolam HCl 50 ml @ 3 mls/hr ONCE STAT IV 08/25/16 09:42 08/26/16 02:21 08/25/16 10:31 Vasopressin 60 unit/Sodium Chloride 60 ml @ 2.4 mls/hr ONCE STAT IV 08/25/16 10:16 08/26/16 11:15 Dopamine HCl/ Dextrose 250 ml @ 4.125 mls/ hr TITRATE IV 08/25/16 10:30 08/25/16 10:30 Dopamine HCl/ Dextrose 250 ml @ ud STK-MED ONCE .ROUTE 08/25/16 10:19 08/25/16 10:20 DC IV Flush 10 ml 10 ml STK-MED ONCE .ROUTE 08/25/16 10:34 08/25/16 10:35 DC Sodium Chloride (NS) 100 ml @ ud STK-MED ONCE .ROUTE 08/25/16 10:34 08/25/16 10:35 DC Iodixanol (Visipaque Locm) 100 ml STK-MED ONCE .ROUTE 08/25/16 10:34 08/25/16 10:35 DC Iodixanol 50 ml 50 ml STK-MED ONCE .ROUTE 08/25/16 10:34 08/25/16 10:35 DC Sodium Chloride (NS) 250 ml @ 0 mls/hr Q0M ONCE IV 08/25/16 10:41 08/25/16 10:43 DC Morphine Sulfate (morphine) 2 mg ONCE ONCE IV 08/25/16 12:00 08/25/16 12:01 UNV Procedures/MDM EKG, MONITORS, & DIAGNOSTIC IMAGING: EKG: I reviewed and interpreted a 12-lead EKG. Rhythm: Sinus tachycardia Ectopy: None Intervals: No abnormalities ST segments: No elevations or depressions T waves: No contiguous inversions possible S1 Q3 T3 strain pattern CT brain: No acute intracranial process CT chest abdomen pelvis IMPRESSION: 1. No pulmonary embolism. Mild bronchial wall thickening may be sequela of bronchitis, asthma, or other nonspecific airway inflammation. 2. The endotracheal tube is seen in the right mainstem bronchus. These findings were discussed with Roosevelt Doss at 08/25/2016 11:41:40 AM. 3. Interval increase in soft tissue thickening around the distal esophagus suggestive of progressive esophageal tumor. In addition, there is large amount of acute blood seen within the stomach. 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 These findings were discussed with Roosevelt Doss at 08/25/2016 11:42:25 AM. Please see report of CT angiogram abdomen and pelvis for further details. 4. Stable right adrenal nodule. 5. Splenic artery aneurysm. RPTAT:PP PROCEDURES: Central Line Note: Consent: I had a discussion with the patient and family regarding the procedure and discussed risks, benefits, alternatives. Critical nature, consent unable to be signed Indication: Critically ill patient requiring specialized vascular access for fluid or pressor management Location: Right IJ Procedure: Sterile procedure was observed throughout insertion of the central line. The insertion site was prepped with sterile solution. Ultrasound-guided identification of the vein was performed. Insertion of a needle into the vein was obtained with return of dark, nonpulsatile blood. The wire was then threaded through the needle without complication. The wire was then identified within the vein using ultrasound. A small skin incision was made, the needle was removed intact, dilation of the vein was performed and insertion of a triple lumen catheter was completed. The catheter was then sutured to the skin. All 3 ports rola back and flushed without difficulty. A sterile dressing was applied. The patient tolerated the procedure well there were no complications. Emergency Bedside Ultrasound: The patient was verbally consented prior to procedure and understands the risks , benefits, and alternatives. The patient is agreeable to procedure and has given verbal consent. Indication: Central line Probe Type: Linear Findings: Dynamic ultrasound utilizing compressive technique with both linear and horizontal views, additional images showing wire within the venous system were obtained. The images were saved along with patient information on a paper chart to be scanned into EMR. The patient tolerated the procedure well and there were no complications. LAB INTERPRETATION: Metabolic acidosis with a hemoglobin of 5 on arterial blood gas MEDICAL DECISION MAKING: The patient presents with altered mental status, prodrome of shortness of breath , hypotension. The patient is afebrile. Unclear etiology. Consider possible infectious, ischemic, pulmonary embolism process. Also consider possible hemorrhage but no evidence of melena on exam. Lower clinical concern for retroperitoneal hemorrhage. The patient is critically ill upon arrival. The patient is intubated. She has bilateral breath sounds. The patient requires aggressive resuscitation. ER COURSE: Multiple large-bore peripheral IVs were inserted. A central line was inserted. The patient was started on 2 L saline bolus. Broad-spectrum antibiotics provided including vancomycin and cefepime. These are empiric antibiotics started after blood cultures. The patient will benefit from CT imaging of the brain, CTA of the chest abdomen and pelvis. The patient remains hypotensive on levo. Initiation of dopamine and vasopressin was started. The patient's arterial blood gas shows evidence of low hemoglobin. Unclear etiology at this time however given the patient's unstable nature uncrossed matched packed red blood cells have been ordered. A total of 4 units have been crossmatch. The patient will be given 2 units of uncrossed match blood while waiting for crossmatch. The patient has significant lactic acidosis. She has a low hemoglobin and evidence of coagulopathy. CT imaging is concerning for esophageal cancer with erosion of the aorta and hemorrhage into the GI tract including esophagus and stomach. An emergent phone call was placed to vascular surgery, Dr. Anderson. I discussed the case. He states that the patient's likelihood of survival of surgery is minimal. He feels that given the evidence of esophageal cancer that is likely advanced with erosion into the aorta the patient's prognosis and life expectancy is on the order of 1-2 months. I informed the family members using an ingredient specialist regarding this. We discussed the risks, benefits and alternatives. We discussed her goals of care. At this point the family would like to make the patient comfort measures only. They understand the severity of this disease process and the likelihood of the patient passing within the next several hours. Given their decision I do not feel that further resuscitation efforts are necessary. We will discontinue pressors, blood transfusion and make the patient comfortable as possible. The patient is receiving sedation including fentanyl and Versed. A small dose of morphine provided. The patient is made DNR, a social services coordinator has been called to facilitate the family with [facility] DISPOSITION PLAN: Pending Medr bed CONSULTATION: Accepting care team and consultations: I discussed the current laboratory data, diagnostic imaging and emergency care provided. Admitting team: [xoxoxo] Admitting team indication: Insurance directed Consulting services: [xoxoxo] Critical Care Note: Total time: 65 minutes Indication/Organ System Threat: Shock, hemorrhagic I spent the above amount of critical care time with the patient, not including billable procedures. This included chart review, consultations, repeat bedside evaluations, and titration of appropriate medications to prevent cardiopulmonary or respiratory collapse. Departure Diagnosis: Primary Impression: Hemorrhagic shock Additional Impressions: Esophageal cancer Qualified Code: C15.9 - Malignant neoplasm of esophagus, unspecified location Aorto-esophageal fistula Acute respiratory failure Qualified Code: J96.00 - Acute respiratory failure, unspecified whether with hypoxia or hypercapnia Lactic acidosis Condition: Critical ROOSEVELT DOSS MD Aug 25, 2016 10:37
[2016-08-25] MEDS ORDERED: SOD CHLORIDE 0.9% 250 ML IV ONE (10:41)
[2016-08-25 10:42] LABS: ALBUMIN 1.4 g/dl (3.3-4.9); POTASSIUM 4.2 mmol/L (3.5-5.1)
[2016-08-25 10:45] LABS: ALBUMIN/GLOBULIN RATIO 0.82; CALCIUM 6.7 mg/dl (8.4-10.2); CREATININE 0.67 mg/dl (0.44-1.00); TOTAL PROTEIN 3.1 g/dl (6.1-8.1)
--- NOTE | 2016-08-25 11:13 | RADRPT ---
PROCEDURE: CT Brain without contrast. CLINICAL INDICATION: Vertigo. TECHNIQUE: A CT of the brain was performed on a high-resolution CT scanner utilizing a low dose te chnique with axial imaging from the skull base through the vertex without IV contrast. Multiplanar reformatted images were made. Images were reviewed on a PACS workstation. The CTDIvol is 42.4 mGy and the DLP is 630 mGycm. One or more of the following dose reduction techniques were used: - Automated exposure control. - Adjustment of the mA and/or kV according to patient size. Use of iterative reconstruction technique. COMPARISON: CT scan brain 08/03/2016. FINDINGS: The fourth ventricle is normal in size. The third and lateral ventricles are mildly dilated with pr oportional sulcal dilatation noted. There are chronic small vessel ischemic changes in the perivent ricular white matter tracts adjacent to the lateral ventricles. No intracranial mass is identified. There are vascular calcifications in the cavernous and supracavernous portions of the internal swartz tid arteries. The visible portions of the globes and extraocular muscles are normal. The paranasal sinuses are cl ear. The mastoid air cells and internal auditory canals are normal. The bony calvarium is intact. IMPRESSION: 1. Stable CT scan of the brain as compared to 08/03/2016. 2. Chronic small vessel ischemic changes in the periventricular white matter tracts adjacent to the lateral ventricles. 3. Cerebral and cerebellar atrophy. 4. There are vascular calcifications in the cavernous and supracavernous portions of the internal c arotid arteries. RPTAT:AAJJ Physician Remi Date Time Electronically viewed and signed by Physician Remi on 08/25/2016 11:12 FENG/
--- NOTE | 2016-08-25 11:42 | RADRPT ---
PROCEDURE: CT Abdomen and Pelvis with contrast. CLINICAL INDICATION: Hypertension. TECHNIQUE: CT scan of the abdomen and pelvis with contrast was performed on a multi-detector high- resolution CT scanner. The patient was scanned following the uncomplicated intravenous administrati on of 115 cc of Visipaque 320 Coronal and sagittal reformatted images were obtained from the axial source images. Images were reviewed on a high-resolution PACS workstation. The total exam CTDI equal s 12.24 mGy and the total exam DLP equals 698.19 mGy-cm. One or more of the following dose reduction techniques were used: Automated exposure control. Adjustment of the mA and/or kV according to patient size. Use of iterative reconstruction technique. COMPARISON: CT abdomen and pelvis 08/02/2016. FINDINGS: CT abdomen: The lung bases are remarkable for aorta esophageal fistula at the level of the distal aspect of the esophageal stent. There is a large amount of active extravasation into the distal esophagus and the stomach. There is large volume of hemorrhage in the distended stomach. The heart size is normal, w ithout pericardial thickening or effusion. The liver is normal in size and density without focal mass or intrahepatic biliary dilatation. The spleen is normal in size and homogeneous in density. The stomach is partially collapsed, but is manny ssly unremarkable. Thrombosed splenic artery aneurysm is again noted. There are several small cysti c lesions in the body and tail of the pancreas. The pancreas as visualized is normal. The gallbladd er and biliary tree are unremarkable and there is no evidence for biliary dilatation. 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 There is atrophic bilateral kidneys with striated appearance sugges ting renal failure. The aorta is of normal caliber. Aortic vascular calcifications are present. There is no retroperit bowling lymphadenopathy. The susan hepatis region is clear. The bowel and mesentery, as visualized, are equally unremarkable. CT pelvis: The small bowel loops situated within the pelvis are unremarkable. There is a small calcified uterin e fibroid. The pelvic sidewalls and inguinal regions are clear. The sigmoid colon and rectum are re markable for sigmoid diverticulosis. No mass, lymphadenopathy, or free fluid is seen. No acute inf lammation is seen. The bladder is normal. There is chronic superior endplate compression fracture o f L4 with no significant retropulsion. The surrounding osseous structures are unremarkable. No osteolytic or osteoblastic lesion is detect ed. A call report was made to Dr. OLI Harden at 08/25/2016 11:37:21 AM following completion of the examination by Dr. Rebolledo. IMPRESSION: 1. 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 The stomach is di stended with large amount of acute hemorrhage. 2. Atrophic bilateral kidneys with striated appearance suggesting renal failure. 3. Multiple small sub centimeter cysts in the body and tail of the pancreas. 4. Aortoiliac atherosclerosis. RPTAT: BB .Kayla Perez MD, MD Date Time Electronically viewed and signed by .Kayla Perez MD, on 08/25/2016 11:41 .O/
--- NOTE | 2016-08-25 11:44 | RADRPT ---
Addendum created at 08/25/2016 12:03:13 PM: Addendum by: Perico Rebolledo PROCEDURE: CT ANGIOGRAPHY CHEST CLINICAL INDICATION: Shortness of breath TECHNIQUE: Volumetrically acquired images of the thorax obtained with intravenous contrast were re formatted in the axial, coronal, and sagittal planes. CTDI = 12.2 mGy; DLP = 698 mGy-cm. 115 cc of Visipaque was administered. 3D MIP multiplanar reconstructions were performed and evaluated on the workstation. One or more of the following dose reduction technique were used: Automatic exposure con trol, adjustment of the mA and/or kV according to patient size, and use of iterative reconstruction technique. COMPARISON: CT abdomen from 03/24/2013. FINDINGS: LOWER NECK AND CHEST WALL: Normal. AIRWAYS: The endotracheal tube is seen in the right mainstem bronchus. No suspicious nodules. Mild bronchial wall thickening is seen. LUNGS: Mild centrilobular emphysema. No suspicious nodules, masses, or consolidation. PLEURA: Unremarkable. No pleural thickening or effusions. LYMPH NODES: No significant axillary, hilar, or mediastinal lymphadenopathy by CT size criteria. CARDIAC: The heart size is normal. No pericardial effusion. VASCULAR: Technically adequate opacification of the pulmonary arteries; no fill defects are seen. T he aorta and main pulmonary artery are normal in caliber. Aortic and coronary atherosclerotic calci fications are present. OSSEOUS: No suspicious osseous lesions. Scattered degenerative changes of the thoracic spine is vis ualized. Limited evaluation of the upper abdomen demonstrates extensive soft tissue around the esophagus with esophageal stent in place. The stomach is markedly distended with high density material seen withi n the stomach is suggestive of blood products. There is a stable 2.2 cm right adrenal nodule. A spl enic artery aneurysm is again demonstrated. IMPRESSION: 1. No pulmonary embolism. Mild bronchial wall thickening may be sequela of bronchitis, asthma, or other nonspecific airway inflammation. 2. The endotracheal tube is seen in the right mainstem bronchus. These findings were discussed with Roosevelt Doss at 08/25/2016 11:41:40 AM. 3. Interval increase in soft tissue thickening around the distal esophagus suggestive of progressiv e esophageal tumor. In addition, there is large amount of acute blood seen within the stomach. 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 These fin dings were discussed with Roosevelt Doss at 08/25/2016 11:42:25 AM. Please see report of CT angiog yana abdomen and pelvis for further details. 4. Stable right adrenal nodule. 5. Splenic artery aneurysm. RPTAT:PP .Perico Rebolledo MD, MD Date Time Electronically viewed and signed by .Perico Rebolledo MD, on 08/25/2016 12:03 .V/
[2016-08-25 11:51] LABS: TROPONIN-I 0.014 ng/ml (0.00-0.12)
[2016-08-25] MEDS ORDERED: morphine 2 MG INJ IV ONE (12:00)
[2016-08-25 12:15] VITALS: BP 111/84; PULSE 33; RESP 11
== END 2016-08-25 16:21 | disposition expired ==
LOC: E/R 09:14
DX: R57.8 Other shock (principal); C15.9 Malignant neoplasm of esophagus, unspecified; K22.8 Other specified diseases of esophagus; J96.00 Acute respiratory failure, unspecified whether with hypoxia or hypercapnia; E87.2 Acidosis; I10 Essential (primary) hypertension; J45.909 Unspecified asthma, uncomplicated; E11.9 Type 2 diabetes mellitus without complications; Z79.84 Long term (current) use of oral hypoglycemic drugs; Z87.891 Personal history of nicotine dependence
CPT/HCPCS: 31500; 36430; 36556; 36600; 70450; 71010; 71275; 74177; 76937; 80053; 82803; 83605; 83690; 84484; 86850; 86900; 86901; 86920; 87040; 93005; 94002; 96374; 96375; 99291; J0692; J1265; J2250; J3010; J7030; J7040; P9016; Q9967